=== PATIENT | female | born 1965 | race Caucasian/White ===

== ENCOUNTER → 2016-12-11 | Outpatient (CLI) | payer MEDICARE, BC ==
[~2016-12-11] MED LIST: ATIVAN 0.50.5 MG/TAB PO; CYMBALTA 60MG60 MG PO; NO HOME MEDICATIONS; NORCO 325 MG-51 TAB PO; PERCOCET 325 MG1 TA2 PO; SEROQUEL 200MG200 MG PO; ZOLOFT 100MG100 MG PO
== END ==
LOC: BHSO 09:39
DX: F33.42 Major depressive disorder, recurrent, in full remission (principal)

== ENCOUNTER 2017-01-16 14:09 | Emergency (ER) | payer MEDICARE, BC ==
[~2017-01-16] VITALS: Ht 154.9 cm; Wt 63.6 kg
[~2017-01-16 14:09] MED LIST changes: -ZOLOFT 100MG100 MG PO
[2017-01-16 14:10] VITALS: TEMP 97.3
[2017-01-16] MEDS ORDERED: ZOLOFT 100MG100 MG PO (14:14)
[2017-01-16 15:09] LABS: BASO # 0.1 (0.0-0.2); BASO % 0.6 % (0.0-2.0); EOS # 0.1 (0.0-0.7); GRAN # 6.3 (1.4-6.5); GRAN % 76.3 % (42.2-75.2); HEMATOCRIT 45.1 % (37.0-47.0); HEMOGLOBIN 15.1 g/dl (12.5-16.0); LYMPH # 1.3 (1.2-3.4); LYMPH % 15.6 % (20.0-51.0); MEAN CELL VOLUME 90 fl (80.0-100.0); MEAN CORPUSCULAR HEMOGLOBIN 30 pg (27.0-31.0); MEAN CORPUSCULAR HGB CONC 34 g/dl (33.0-37.0); MONO # 0.5 (0.1-0.6); MONO % 6.3 % (1.7-9.3); PLATELET COUNT 312 K/mm3 (130-400); RED BLOOD COUNT 5.04 M/mm3 (4.10-5.30); REDCELL DISTRIBUTION WIDTH-CV 12.7 % (11.5-14.5); WHITE BLOOD COUNT 8.3 K/mm3 (4.8-10.8)
[2017-01-16 15:23] LABS: ADJUSTED CALCIUM 9.9 mg/dL (8.4-10.2); ALANINE AMINOTRANSFERASE 87 U/L (9-52); ALBUMIN 4.5 gm/dL (3.5-5.0); ALKALINE PHOSPHATASE 89 U/L (50-136); ANION GAP 11 mmol/L (7-16); BILIRUBIN,TOTAL 0.6 mg/dL (0.0-1.0); BLOOD UREA NITROGEN 14 mg/dL (7-17); CALCIUM 10.3 mg/dL (8.4-10.2); CARBON DIOXIDE 28 mmol/L (22-30); CHLORIDE 101 mmol/L (98-107); CREATININE, serum 0.84 mg/dL (0.52-1.25); GLUCOSE 137 mg/dL (74-106); POTASSIUM 4.2 mmol/L (3.4-5.0); SODIUM 140 mmol/L (137-145); TOTAL PROTEIN 8.3 gm/dL (6.4-8.2)
[2017-01-16 17:00] LABS: ACETAMINOPHEN < 10 ug/mL (10-30); CREATINE KINASE 133 U/L (30-135); SALICYLATE < 1.0 mg/dL
[2017-01-16 17:01] LABS: AMPHETAMINE URINE NEGATIVE; BARBITURATES URINE NEGATIVE; BENZODIAZEPINES URINE NEGATIVE; BUPRENORPHINE URINE NEGATIVE; METHADONE URINE NEGATIVE; OPIATES URINE POSITIVE; OXYCODONE URINE NEGATIVE; PHENCYCLIDINE URINE NEGATIVE; PROPOXYPHENE URINE NEGATIVE; THC CANNABINOIDS URINE NEGATIVE
[2017-01-16 19:35] VITALS: BP 139/86; PULSE 93
== END 2017-01-16 19:35 | disposition home or self-care (01) ==
LOC: COL.ER 14:09
PROVIDERS: Emergency Medicine
DX: F45.9 Somatoform disorder, unspecified (principal); F32.9 Major depressive disorder, single episode, unspecified; M79.1 Myalgia
CPT/HCPCS: J1200; J1630; J2270; J7030

== ENCOUNTER → 2017-02-06 | Outpatient (CLI) | payer MEDICARE, BC ==
[~2017-02-06] MED LIST changes: +ZOLOFT 100MG100 MG PO
== END ==
LOC: BHSO 09:01
DX: F33.0 Major depressive disorder, recurrent, mild (principal)

== ENCOUNTER → 2017-03-05 | Outpatient (CLI) | payer MEDICARE, BC | LOC: BHSO 13:32 | DX: F33.42 Major depressive disorder, recurrent, in full remission (principal) ==

== ENCOUNTER → 2017-04-30 | Outpatient (CLI) | payer MEDICARE, BC | LOC: BHSO 13:37 | DX: F33.42 Major depressive disorder, recurrent, in full remission (principal) ==

== ENCOUNTER → 2017-06-13 | Outpatient (CLI) | payer BC | LOC: BHSO 14:17 | DX: F33.41 Major depressive disorder, recurrent, in partial remission (principal) ==

== ENCOUNTER → 2017-09-26 | Outpatient (CLI) | payer BC | LOC: BHSO 14:15 | DX: F33.42 Major depressive disorder, recurrent, in full remission (principal) ==

== ENCOUNTER → 2017-12-02 | Outpatient (CLI) | payer MEDICARE, BC | LOC: MC.RAD 10:16 | DX: Z12.31 Encounter for screening mammogram for malignant neoplasm of breast (principal) ==

== ENCOUNTER → 2017-12-26 | Outpatient (CLI) | payer MEDICARE, BC | LOC: BHSO 13:58 | DX: F33.41 Major depressive disorder, recurrent, in partial remission (principal) | CPT/HCPCS: G0463 ==

== ENCOUNTER → 2018-03-25 | Outpatient (CLI) | payer MEDICARE, BC | LOC: BHSO 13:01 | DX: F33.42 Major depressive disorder, recurrent, in full remission (principal) | CPT/HCPCS: G0463 ==

== ENCOUNTER → 2018-09-24 | Outpatient (CLI) | payer MEDICARE, BC | LOC: BHSO 13:59 | DX: F33.41 Major depressive disorder, recurrent, in partial remission (principal) | CPT/HCPCS: G0463 ==

== ENCOUNTER → 2018-11-20 | Outpatient (CLI) | payer MEDICARE, BC | LOC: BHSO 15:02 | DX: F33.41 Major depressive disorder, recurrent, in partial remission (principal) | CPT/HCPCS: G0463 ==

== ENCOUNTER → 2019-02-16 | Outpatient (CLI) | payer MEDICARE, BC | LOC: BHSO 11:22 | DX: F20.9 Schizophrenia, unspecified (principal) ==

== ENCOUNTER → 2019-03-01 | Outpatient (CLI) | payer MEDICARE, BC | LOC: BHSO 11:20 | DX: F33.41 Major depressive disorder, recurrent, in partial remission (principal) | CPT/HCPCS: G0463 ==

== ENCOUNTER → 2019-04-02 | Outpatient (CLI) | payer MEDICARE, BC | LOC: BHSO 11:24 | DX: F22 Delusional disorders (principal) | CPT/HCPCS: G0463 ==

== ENCOUNTER → 2019-05-07 | Outpatient (CLI) | payer MEDICARE, BC | LOC: BHSO 11:19 | DX: F22 Delusional disorders (principal) | CPT/HCPCS: G0463 ==

== ENCOUNTER → 2019-08-03 | Outpatient (CLI) | payer MEDICARE, BC | LOC: BHSO 11:18 | DX: F33.41 Major depressive disorder, recurrent, in partial remission (principal) | CPT/HCPCS: G0463 ==

== ENCOUNTER → 2019-10-27 | Outpatient (CLI) | payer MEDICARE, BC | LOC: BHSO 16:00 | DX: F33.42 Major depressive disorder, recurrent, in full remission (principal) | CPT/HCPCS: G0463 ==

== ENCOUNTER → 2020-01-13 | Outpatient (CLI) | payer MEDICARE, BC | LOC: BHSO 11:14 | DX: F22 Delusional disorders (principal) | CPT/HCPCS: G0463 ==

== ENCOUNTER → 2020-01-27 | Outpatient (CLI) | payer MEDICARE, BC | LOC: BHSO 09:22 | DX: F22 Delusional disorders (principal) | CPT/HCPCS: G0463 ==

== ENCOUNTER → 2020-04-11 | Outpatient (CLI) | payer MEDICARE, BC | LOC: BHSO 10:00 | DX: F22 Delusional disorders (principal) ==

== ENCOUNTER → 2020-04-26 | Outpatient (CLI) | payer MEDICARE, BC | LOC: BHSO 14:06 | DX: F22 Delusional disorders (principal) | CPT/HCPCS: G0463 ==

== ENCOUNTER → 2020-06-28 | Outpatient (CLI) | payer MEDICARE, BC | LOC: BHSO 13:04 | DX: F22 Delusional disorders (principal) | CPT/HCPCS: G0463 ==

== ENCOUNTER → 2021-01-05 | Outpatient (CLI) | payer MEDICARE, BC | LOC: MC.RAD 10:16 | DX: Z12.31 Encounter for screening mammogram for malignant neoplasm of breast (principal) ==

== ENCOUNTER 2021-06-08 23:17 | Emergency (ER) | payer MEDICARE, BC ==
[~2021-06-08] VITALS: Ht 152.4 cm; Wt 72.7 kg
[2021-06-08 23:32] VITALS: TEMP 97.2
[2021-06-09] LABS: BASO # 0.1 (0.0-0.2); BASO % 1.2 % (0.0-2.0); EOS # 0.3 (0.0-0.7); EOS % 3.4 % (0-4.0); GRAN # 3.1 (1.4-6.5); GRAN % 42.1 % (42.2-75.2); HEMATOCRIT 44.8 % (37.0-47.0); HEMOGLOBIN 15.2 g/dl (12.5-16.0); LYMPH # 3.1 (1.2-3.4); LYMPH % 42.1 % (20.0-51.0); MEAN CELL VOLUME 85 fl (80.0-100.0); MEAN CORPUSCULAR HEMOGLOBIN 29 pg (27.0-31.0); MEAN CORPUSCULAR HGB CONC 34 g/dl (33.0-37.0); MEAN PLATELET VOLUME 9.8 fl (7.4-10.4); MONO # 0.8 (0.1-0.6); MONO % 10.9 % (1.7-9.3); PLATELET COUNT 318 K/mm3 (130-400); RED BLOOD COUNT 5.28 M/mm3 (4.10-5.30); REDCELL DISTRIBUTION WIDTH-CV 13.3 % (11.5-14.5)
[2021-06-09 00:10] LABS: ALBUMIN 4.7 gm/dL (3.5-5.0); BILIRUBIN,TOTAL 0.6 mg/dL (0.0-1.0); CALCIUM 10.9 mg/dL (8.4-10.2); CREATININE, serum 0.8 (0.52-1.25); TOTAL PROTEIN 8.2 gm/dL (6.4-8.2)
[2021-06-09 00:18] LABS: COLLECTION METHOD CLEAN CATCH
[2021-06-09 00:23] LABS: PH 8 (5-8); SQUAMOUS EPITHELIAL 0-2 /hpf; URINE APPEARANCE Clear; URINE BACTERIA Rare /hpf; URINE BILIRUBIN Negative (NEGATIVE); URINE BLOOD Negative (NEGATIVE); URINE COLOR Straw; URINE GLUCOSE Negative (NEGATIVE); URINE KETONE Negative (NEGATIVE); URINE LEUKOCYTE ESTERASE Negative (NEGATIVE); URINE NITRATE Negative (NEGATIVE); URINE PROTEIN(semi-quant) Negative (NEGATIVE); URINE RBC 0-2 /hpf; URINE UROBILINOGEN Negative (NEGATIVE)
[2021-06-09 01:05] VITALS: BP 154/70; PULSE 68
== END 2021-06-09 01:05 | disposition home or self-care (01) ==
LOC: COL.ER 23:17
PROVIDERS: Emergency Medicine
DX: M79.18 Myalgia, other site (principal); E87.6 Hypokalemia; F32.9 Major depressive disorder, single episode, unspecified; Z79.899 Other long term (current) drug therapy

== ENCOUNTER → 2022-04-25 | Outpatient (CLI) | payer MEDICARE, BC | LOC: COL.RAD 09:53 | DX: M16.12 Unilateral primary osteoarthritis, left hip (principal) ==

== ENCOUNTER 2022-12-25 17:14 | Inpatient (IN) | payer MEDICARE, BC ==
[~2022-12-25] VITALS: Ht 152.4 cm; Wt 74.3 kg
--- NOTE | 2022-12-25 11:30 | NUR ---
melting supervisor is unable to obtain an IV. MINDY Holly contacted, placed an Anesthesia consult to have senior environmental technician LEAD SOFTWARE ARCHITECT come to place US guided IV.
[2022-12-25] MEDS ORDERED: GEODON80 MG PO (17:47)
[2022-12-25] MEDS ORDERED: SYNTHROID0.075 MG/T PO (17:48)
[2022-12-25] MEDS ORDERED: BUMEX 1MG TA1 MG/TA1 PO (17:54)
[2022-12-25] MEDS ORDERED: PRAVACHOL 20MG20 MG PO (18:16)
[2022-12-25] MEDS ORDERED: LYRICA 50MG CAP50 MG PO (18:16)
[2022-12-25] MEDS ORDERED: VISTARIL50 MG PO (18:17)
[2022-12-25 18:40] LABS: BASO % 0.5 % (0.0-2.0); EOS % 0.5 % (0.0-4.0); GRAN # 7.3 K/mm3 (1.4-6.5); GRAN % 83.5 % (42.2-75.2); HEMATOCRIT 39.9 % (37.0-47.0); HEMOGLOBIN 13.9 g/dl (12.5-16.0); LYMPH % 11.9 % (20.0-51.0); MEAN CELL VOLUME 81 fl (80.0-100.0); MEAN CORPUSCULAR HEMOGLOBIN 28 pg (27-31); MEAN CORPUSCULAR HGB CONC 35 g/dl (33.0-37.0); MEAN PLATELET VOLUME 11.1 fl (7.4-10.4); MONO # 0.3 K/mm3 (0.1-0.6); PLATELET COUNT 184 K/mm3 (130-400); REDCELL DISTRIBUTION WIDTH-CV 13.2 % (11.5-14.5)
[2022-12-25 18:47] LABS: ALBUMIN 3.4 gm/dL (3.5-5.0); BILIRUBIN,TOTAL 1.1 mg/dL (0.2-1.2); CREATININE, serum 1.62 mg/dL (0.57-1.11); TOTAL PROTEIN 7.6 gm/dL (6.2-8.1)
[2022-12-25 18:50] LABS: POTASSIUM 2.7 mmol/L (3.5-4.5)
--- NOTE | 2022-12-25 19:30 | NUR ---
At this time, the patient is without an IV. The patient is a difficult stick, and this RN attempted to look, but did not feel comfortable attempting the IV placement. ultrasound supervisor contacted for IV placement, she will attempt when she is able to make it to the medical floor. Assessment made, the patient has severe reddened LLE cellulitis, at this time there is no drainage. The patient is able to walk, but does state that her feet are too swollen and are really uncomfortable.
[2022-12-25 20:43] VITALS: BP 103/58; PULSE 93; TEMP 99.8
[2022-12-25 23:10] VITALS: BP 111/67; PULSE 110; TEMP 101.9
[2022-12-25 23:18] LABS: COLLECTION METHOD CLEAN CATCH
[2022-12-25 23:23] LABS: PH 5.5 (5.0-8.5); URINE APPEARANCE Clear (CLEAR/HAZY); URINE BLOOD 2+ (NEGATIVE); URINE COLOR Yellow (YELLOW); URINE GLUCOSE Negative (NEGATIVE); URINE KETONE Negative (NEGATIVE); URINE NITRATE Negative (NEGATIVE); URINE PROTEIN(semi-quant) 1+ (NEGATIVE); URINE UROBILINOGEN 0.2 E.U/dL (0.2-1.0)
[2022-12-25 23:26] LABS: MUCOUS Present (NOT PRESENT); URINE BACTERIA None Seen /hpf (NONE SEEN); URINE RBC 0-2 /hpf (0-2)
[2022-12-26] VITALS (9 sets, daily range): BP systolic 85–124; BP diastolic 44–64; PULSE 96–110; TEMP 97.5–100.8
--- NOTE | 2022-12-26 | NUR ---
US guided IV placed at this time. The patient now has a 20g in the R FA. Flushes well, with good blood return. Pt still at risk of inflitration d/t the depth per Vahe Khalil CRNA. Continue to monitor site. PICC is scheduled for today.
--- NOTE | 2022-12-26 03:30 | NUR ---
During vitals, this patient had low BP, high heart rate, low grade temp as well as some chills. At this time, MINDY Holly was notified, and the patient was placed on sepsis protocol and sepsis fluids were started.
--- NOTE | 2022-12-26 05:38 | NUR ---
Vancomycin Initial Dosing Pharmacy Note Ordering provider: Robert Pelaez MD Indication/duration: Cellulitis x 7 days Relevant comorbidities: N/A LABS: WBC = 8.7, SCr = 1.62, Tmax = 101.9 F Recommendation: Will draw trough and follow levels. Loading dose: 1.5 grams Maintenance dose: 750 mg every 24 hours Trough goal: 10-15 ug/mL
[2022-12-26 06:51] LABS: BASO % 0.5 % (0.0-2.0); EOS % 0.6 % (0.0-4.0); GRAN # 5.2 K/mm3 (1.4-6.5); GRAN % 83.9 % (42.2-75.2); LYMPH # 0.7 K/mm3 (1.2-3.4); LYMPH % 10.7 % (20.0-51.0); MEAN CELL VOLUME 82 fl (80.0-100.0); MEAN CORPUSCULAR HGB CONC 35 g/dl (33.0-37.0); MEAN PLATELET VOLUME 10.7 fl (7.4-10.4); MONO # 0.3 K/mm3 (0.1-0.6); MONO % 4.1 % (1.7-9.3); PLATELET COUNT 148 K/mm3 (130-400); RED BLOOD COUNT 3.82 M/mm3 (4.10-5.30); REDCELL DISTRIBUTION WIDTH-CV 13.2 % (11.5-14.5)
[2022-12-26 06:57] LABS: HEMATOCRIT 31.3 % (37.0-47.0); HEMOGLOBIN 10.8 g/dl (12.5-16.0); MEAN CORPUSCULAR HEMOGLOBIN 28 pg (27-31)
[2022-12-26 07:01] LABS: INR 1.2 (0.8-3.0); PROTHROMBIN TIME 13.5 SECONDS (9.7-12.8)
[2022-12-26 07:07] LABS: CALCIUM 8.3 mg/dL (8.4-10.2); CREATININE, serum 0.9 mg/dL (0.57-1.11); MAGNESIUM 1.7 mg/dL (1.6-2.6)
[2022-12-26 07:11] LABS: POTASSIUM 2.7 mmol/L (3.5-4.5)
--- NOTE | 2022-12-26 09:12 | NUR ---
SHIFT ASSESSMENT COMPLETED AND MORNING MEDICATIONS ADMINISTERED PER ORDER. PATIENT IS ALERT AND ORIENTED X4. C/O PAIN TO LEFT LEG 6/10, TREATED WITH PRN PAIN MEDICATION. ON IVF AND VANCOMYCIN, TOLERATING WELL. PENDING PICC PLACEMENT. DENIES NEEDS AT THIS TIME. CALL LIGHT WITHIN REACH.
--- NOTE | 2022-12-26 13:49 | NUR ---
Web Content Manager met with patient to discuss discharge planning. Patient lives alone in [place] and sees Dr. Orr for primary care. Patient obtains medications from [facility] with no difficulties and does not use any DME at home. Patient is independent with ADLS and plans to return home at time of discharge. Patient advised her sister, Asha (ph#[phone]) is her DPOA-HC. Patient also listed her friend, Julieth (ph#[phone]) as a contact. Discharge Plan: Home
--- NOTE | 2022-12-26 15:31 | NUR ---
Initial visit: Digital Media Planner stopped by room on rounds. Pt was resting and content. Pt has no needs right now. Digital Media Planner will follow up as needed
--- NOTE | 2022-12-26 19:31 | NUR ---
PATIENT PREVIOUS REQUESTING TO BE MADE A DNR, DR. CONNELL UPDATED, AND DNR ORDER ENTERED BY MD. PATIENT THEN TOLD THIS NURSE SEVERAL HOURS LATER THAT SHE MAY WANT TO BE INTUBATED, BUT THAT SHE WANTS TO DISCUSS THIS WITH HER DOCTOR. DR. NELSON UPDATED WHO WILL COME SPEAK WITH PATIENT AND UPDATE CODE STATUS ACCORDINGLY. PREVIOUS BAG OF IV FLUIDS STILL INFUSING, HS RN NOTIFIED WHO WILL HANG NEXT BAG WHEN ABLE.
--- NOTE | 2022-12-26 20:30 | NUR ---
Initial shift assessment done- pt on 2L/nc with sats 92%, alert/oriented x3, right lower leg is bright red- has been marked with marker. has bilateral lower extremity edema, hand edema, generalized edema, tele on- ST, IV fluids of NS at 150cc/hr to BRADEN PICC line- temp 100.8-- tylenol given, B/P stable at this time.
--- NOTE | 2022-12-26 22:50 | NUR ---
Pt states feeling SOB, o2 sats 88%- put on 4L/per mask, sats up to 92-93%, lung sounds very decreased in the bases, B/P remains stable-- Elayne called with the SOB and edema ,, ordered to stop IV fluids at give 20mg of Lasix00 pt aware.
[2022-12-27] VITALS (8 sets, daily range): BP systolic 99–125; BP diastolic 53–60; PULSE 90–105; TEMP 98.1–102.2
--- NOTE | 2022-12-27 05:30 | NUR ---
Is feeling a little better this morning- VSS, o2 sats now 96% on the 4L/mask, temp down to 99.0,, Has been up to the BSC numerous times - has had 2750cc urine out since the Lasix given before midnight. Left leg remains bright red-continues with edema lower ext, hands, trunk-- tele on.
[2022-12-27 06:44] LABS: BASO % 0.4 % (0.0-2.0); EOS # 0.1 K/mm3 (0.0-0.7); EOS % 0.9 % (0.0-4.0); GRAN # 6.9 K/mm3 (1.4-6.5); GRAN % 81.2 % (42.2-75.2); HEMOGLOBIN 10.6 g/dl (12.5-16.0); LYMPH # 0.9 K/mm3 (1.2-3.4); MEAN CELL VOLUME 85 fl (80.0-100.0); MEAN CORPUSCULAR HEMOGLOBIN 28 pg (27-31); MEAN CORPUSCULAR HGB CONC 33 g/dl (33.0-37.0); MEAN PLATELET VOLUME 11.6 fl (7.4-10.4); MONO # 0.5 K/mm3 (0.1-0.6); MONO % 6.1 % (1.7-9.3); PLATELET COUNT 165 K/mm3 (130-400); RED BLOOD COUNT 3.79 M/mm3 (4.10-5.30); REDCELL DISTRIBUTION WIDTH-CV 13.8 % (11.5-14.5)
[2022-12-27 06:45] LABS: C-REACTIVE PROTEIN 20.73 mg/dL (0.00-0.50); CALCIUM 8.4 mg/dL (8.4-10.2); CREATININE, serum 0.75 mg/dL (0.57-1.11); MAGNESIUM 1.8 mg/dL (1.6-2.6); POTASSIUM 3.5 mmol/L (3.5-4.5)
[2022-12-27 06:51] LABS: HEMATOCRIT 32.3 % (37.0-47.0)
--- NOTE | 2022-12-27 10:21 | NUR ---
Overhead Garage Door Hanger spoke with RN and patient has been mostly independent in the room. At times pain has been a challenge for patient. Discharge Plan: Home
--- NOTE | 2022-12-27 10:33 | NUR ---
SHIFT ASSESSMENT COMPLETED AND MORNING MEDICATIONS ADMINISTERED PER ORDER. PATIENT IS ALERT AND ORIENTED X4. C/O PAIN 4/10 GENERALIZED. LUNGS DIMINISHED IN THE BASES BILATERALLY. CELLULITIS TO LEFT LOWER LEG. AMBULATING INDEPENDENTLY IN THE ROOM. DENIES NEEDS AT THIS TIME. REQUEST MEDICATIONS BE RE-TIMED, PHARMACY UPDATED. CALL LIGHT WITHIN REACH.
--- NOTE | 2022-12-27 15:27 | NUR ---
SW placed copy of Advance Directives on patient's chart.
--- NOTE | 2022-12-27 17:28 | NUR ---
PATIENT UP TO THE COMMODE AT THIS TIME WITH ONE ASSIST. C/O PAIN 3/10 TO HER LEFT LEG BUT DENIES NEED FOR PAIN MEDICATION OR INTERVENTIONS AT THIS TIME. BP HAS BEEN STABLE THROUGHOUT THE SHIFT. DENIES ANY NEEDS, CALL LIGHT WITHIN REACH.
--- NOTE | 2022-12-27 23:44 | NUR ---
NURSING SHIFT ASSESSMENT COMPLETED. THE PATIENT DENIED PAIN AT THIS TIME. THE PLAN OF CARE WAS DISCUSSED. THE PATIENT WAS ALERT, ORIENTED AND APPROPRIATE. WILL MONITOR. CALL LIGHT WITHIN REACH.
[2022-12-28] VITALS (8 sets, daily range): BP systolic 89–123; BP diastolic 49–62; PULSE 78–94; TEMP 98.1–99.7
[2022-12-28 06:01] LABS: BASO # 0.1 K/mm3 (0.0-0.2); BASO % 0.5 % (0.0-2.0); EOS # 0.2 K/mm3 (0.0-0.7); EOS % 1.9 % (0.0-4.0); GRAN # 6.1 K/mm3 (1.4-6.5); GRAN % 65.7 % (42.2-75.2); HEMOGLOBIN 10.3 g/dl (12.5-16.0); LYMPH % 21.1 % (20.0-51.0); MEAN CELL VOLUME 85 fl (80.0-100.0); MEAN CORPUSCULAR HEMOGLOBIN 28 pg (27-31); MEAN CORPUSCULAR HGB CONC 33 g/dl (33.0-37.0); MEAN PLATELET VOLUME 10.8 fl (7.4-10.4); MONO # 0.9 K/mm3 (0.1-0.6); MONO % 9.8 % (1.7-9.3); PLATELET COUNT 172 K/mm3 (130-400); RED BLOOD COUNT 3.71 M/mm3 (4.10-5.30); REDCELL DISTRIBUTION WIDTH-CV 13.9 % (11.5-14.5)
[2022-12-28 06:05] LABS: HEMATOCRIT 31.5 % (37.0-47.0)
[2022-12-28 06:17] LABS: CREATININE, serum 0.74 mg/dL (0.57-1.11); POTASSIUM 3.7 mmol/L (3.5-4.5)
--- NOTE | 2022-12-28 08:39 | NUR ---
Pt assessment complete. Pt is laying in bed upon entry, she is A/O x4. Her breathing is even and unlabored on 2L O2 via NC. Pt denies SOB. Pain to LLE 04/02, does not need anything for pain at this time. Denies any N/V. Pt assisted to the BSC. IV antibiotics infusing. No needs at this time. Call light withn reach.
--- NOTE | 2022-12-29 01:30 | NUR ---
NURSING SHIFT ASSESSMENT COMPLETED. THE PATIENT REPORTED 4/10 PAIN LEFT LOWER EXTREMITY. SCHEDULED PAIN MEDICATION PROVIDED. THE PATIENT WAS ALERT, ORIENTED AND APPROPRIATE. THE PATIENT WAS ASSISTED OUT OF BED AND TO THE CHAIR WITH 1:1 ASSIST. EVENING MEDICATIONS AND PLAN OF CARE DISCUSSED. WILL MONITOR.
[2022-12-29 03:55] VITALS: BP 92/55; PULSE 76; TEMP 98.2
[2022-12-29 07:43] VITALS: BP 115/68; PULSE 81; TEMP 98.7
--- NOTE | 2022-12-29 08:33 | NUR ---
Pt assessment complete. Pt is sitting up in bed upon entry, she is A/O x4. Her breathing is even and unlabored on 1L o2 via NC. Pt denies SOB. Pain tolerable at this time. Denies any N/V. BLE elevated on pillow. No needs at this time. Call light withinr each.
[2022-12-29 12:30] VITALS: BP 107/59; PULSE 82; TEMP 98.4
[2022-12-29 16:39] VITALS: BP 112/63; PULSE 89; TEMP 98.5
--- NOTE | 2022-12-29 18:31 | NUR ---
Pt had uneventful day. Pain well controlled, elevated leg on a pillow as one is all that she is able to withstand. Pt assisted with a shower tonight. Has no needs at this time. Call light within reach.
[2022-12-29 19:03] VITALS: BP 117/68; PULSE 88; TEMP 98.6
[2022-12-29 23:10] VITALS: BP 107/60; PULSE 97; TEMP 98.9
[2022-12-30] VITALS (7 sets, daily range): BP systolic 105–125; BP diastolic 59–78; PULSE 55–95; TEMP 97.3–98.7
--- NOTE | 2022-12-30 03:12 | NUR ---
NURSING SHIFT ASSESSMENT COMPLETED. THE PATIENT DENIED NEEDS AT THIS TIME. THE PLAN OF CARE WAS DISCUSSED AND ALL QUESTIONS AND CONERNS WERE ADDRESSED. WILL MONITOR.
[2022-12-30 06:02] LABS: HEMOGLOBIN 11.9 g/dl (12.5-16.0); MEAN CELL VOLUME 85 fl (80.0-100.0); MEAN CORPUSCULAR HEMOGLOBIN 28 pg (27-31); MEAN CORPUSCULAR HGB CONC 32 g/dl (33.0-37.0); MEAN PLATELET VOLUME 10.7 fl (7.4-10.4); REDCELL DISTRIBUTION WIDTH-CV 13.6 % (11.5-14.5)
[2022-12-30 06:03] LABS: HEMATOCRIT 36.7 % (37.0-47.0)
[2022-12-30 06:04] LABS: PLATELET COUNT 277 K/mm3 (130-400)
[2022-12-30 06:17] LABS: C-REACTIVE PROTEIN 9.04 mg/dL (0.00-0.50); CREATININE, serum 0.89 mg/dL (0.57-1.11); MAGNESIUM 2.2 mg/dL (1.6-2.6); POTASSIUM 4.4 mmol/L (3.5-4.5)
[2022-12-30 06:33] LABS: BAND 9 % (0-10); EOSINOPHIL 3 % (0-4); HYPOCHROMIA 1+; LYMPHOCYTE 26 % (20.0-51.0); NEUTROPHILS 55 % (42.0-75.2); PLATELET ESTIMATE NORMAL (NORMAL)
--- NOTE | 2022-12-30 10:28 | NUR ---
Vancomycin Follow-up Pharmacy Note Current regimen: Vancomycin 750 mg IV q24h Vancomycin trough: 4.9 Adjustments: Will increase Vancomycin to 750 mg IV q12h. Pharmacy will continue to closely monitor.
--- NOTE | 2022-12-30 10:37 | NUR ---
SHIFT ASSESSSMENT COMPLETED AND MORNING MEDICATIONS ADMINISTERED PER ORDER. PATIENT IS ALERT AND ORIENTED X4. DENIES PAIN. LUNGS CTA. CELLULITIS TO LLE. PICC IN PLACE TO RIGHT UPPER ARM, PATENT AND WITH GOOD BLOOD RETURN. VANC TROUGH THIS MORNING WAS LOW, PER ROSANA, PHARMACY, GIVE 0900 DOSE AND SHE WILL ADJUST NEXT DOSE. VANC HANGING NOW, PATIENT TOLERATING WELL. DENIES ANY FURTHER NEEDS. CALL LIGHT WITHIN REACH.
--- NOTE | 2022-12-30 18:12 | NUR ---
PATIENT UP IN BED AT THIS TIME. DENIES ANY NEEDS. CONTINUES ON VANC, TOLERATING WELL. CALL LIGHT WITHIN REACH.
[2022-12-31 03:45] VITALS: BP 94/50; PULSE 88; TEMP 98.1
--- NOTE | 2022-12-31 08:00 | NUR ---
Patient is resting in bed, alert and oriented x 4, assisted to the restroom. Complains of tolerable pain with walking. Notable reduction of redness on left lower leg. Assessment completed, meds provided. No other needs at this time. Call light within reach.
[2022-12-31 08:11] VITALS: BP 118/68; PULSE 87; TEMP 98.1
[2022-12-31 08:52] LABS: HEMATOCRIT 37.6 % (37.0-47.0); HEMOGLOBIN 12.2 g/dl (12.5-16.0); MEAN CELL VOLUME 86 fl (80.0-100.0); MEAN CORPUSCULAR HEMOGLOBIN 28 pg (27-31); MEAN CORPUSCULAR HGB CONC 32 g/dl (33.0-37.0); MEAN PLATELET VOLUME 10.5 fl (7.4-10.4); PLATELET COUNT 301 K/mm3 (130-400); REDCELL DISTRIBUTION WIDTH-CV 13.7 % (11.5-14.5)
[2022-12-31 08:59] LABS: CALCIUM 9.3 mg/dL (8.4-10.2); CREATININE, serum 0.83 mg/dL (0.57-1.11); POTASSIUM 4.6 mmol/L (3.5-4.5)
[2022-12-31 10:31] LABS: BAND 2 % (0-10); EOSINOPHIL 9 % (0-4); LYMPHOCYTE 24 % (20.0-51.0); NEUTROPHILS 57 % (42.0-75.2); NUCLEATED RED BLOOD CELL 1 (0-6)
[2022-12-31 10:32] LABS: HYPOCHROMIA 1+; PLATELET ESTIMATE NORMAL (NORMAL)
--- NOTE | 2022-12-31 11:04 | NUR ---
MITCHELL met with the patient to review discharge plan. The patient confirms that she plans to return home upon discharge. She shares that she does have some concerns about being able to get in and out of bed. She provides that she does not a FWW. PT is recommending home. SW discussed the option of home health and getting a FWW walker ordered through her insurance. The patient is interested in both of these. MITCHELL provided her with Medicare.[facility]'s list of home health agencies that serve [place]. The patient chose [facility]. The patient is also agreeable to getting the FWW through [facility]. MITCHELL staffed with PT. PT states that they worked with the patient on bed mobility and the patient is able to get in and out of bed herself and they still recommend home. MITCHELL contacted and faxed the FWW order to Wilver at [facility]. Wilver states that they can deliver the FWW to the patient's room tomorrow. MITCHELL contacted and faxed a referral to Enrique at [facility]. Enrique reports they are able to accept the patient. *Discharge plan: home with home health*
[2022-12-31 11:39] VITALS: BP 119/68; PULSE 83; TEMP 97.2; TEMP 970
[2022-12-31 16:00] VITALS: BP 119/74; PULSE 92; TEMP 97.4
--- NOTE | 2022-12-31 18:54 | NUR ---
Patient has had a calm day, did not asked for pain medicaiotn, cooperative with terapy and taking medications. Report given to night RN.
[2022-12-31 20:04] VITALS: BP 117/69; PULSE 90; TEMP 98
[2023-01-01] VITALS (7 sets, daily range): BP systolic 96–129; BP diastolic 48–68; PULSE 79–89; TEMP 97.4–98.2
[2023-01-01 06:45] LABS: HEMATOCRIT 38.3 % (37.0-47.0); HEMOGLOBIN 12.5 g/dl (12.5-16.0); MEAN CELL VOLUME 86 fl (80.0-100.0); MEAN CORPUSCULAR HEMOGLOBIN 28 pg (27-31); MEAN CORPUSCULAR HGB CONC 33 g/dl (33.0-37.0); MEAN PLATELET VOLUME 10.3 fl (7.4-10.4); PLATELET COUNT 326 K/mm3 (130-400); RED BLOOD COUNT 4.44 M/mm3 (4.10-5.30)
[2023-01-01 07:06] LABS: C-REACTIVE PROTEIN 5.22 mg/dL (0.00-0.50); CALCIUM 9.8 mg/dL (8.4-10.2); CREATININE, serum 0.8 mg/dL (0.57-1.11); POTASSIUM 4.4 mmol/L (3.5-4.5)
[2023-01-01 07:38] LABS: BAND 5 % (0-10); EOSINOPHIL 4 % (0-4); LYMPHOCYTE 34 % (20.0-51.0); METAMYELOCYTE 3 % (0-0); MYELOCYTE 4 % (0-0); NEUTROPHILS 46 % (42.0-75.2); PLATELET ESTIMATE NORMAL (NORMAL)
[2023-01-01 07:39] LABS: HYPOCHROMIA 1+
--- NOTE | 2023-01-01 11:08 | NUR ---
SHIFT ASSESSMENT COMPLETED AND MORNING MEDICATIONS ADMINISTERED PER ORDER. PATIENT IS ALERT AND ORIENTED X4. DENIES PAIN AT THIS TIME. CELLULITIS TO LEFT LOWER LEG. LUNGS CTA. PICC TO RIGHT UPPER ARM, RED PORT PATENT WITH GOOD BLOOD RETURN, PURPLE PORT NON-PATENT. DENIES ANY NEEDS. CALL LIGHT WITHIN REACH.
--- NOTE | 2023-01-01 13:11 | NUR ---
Wilver, at [facility], reports that they will be delivering the FWW to the patient's room today.
--- NOTE | 2023-01-01 18:15 | NUR ---
PATIENT IN BED AT THIS TIME. DENIES ANY NEEDS. CALL LIGHT WITHIN REACH.
--- NOTE | 2023-01-01 21:00 | NUR ---
PT RESTING IN BED. A&OX4. PLEASANT AND COOPERATIVE. LLE RED AND SWOLLEN. SKIN VERY SHINY. MINIMAL WEEPING. DENIES NUMBNESS OR TINGLING. PAIN CONTROLLED AT THIS TIME. SCHEDULED LYRICA. PT REPORTS X1 DIARRHEA TODAY.
[2023-01-02] VITALS (7 sets, daily range): BP systolic 95–116; BP diastolic 52–74; PULSE 81–108; TEMP 97.7–98.5
--- NOTE | 2023-01-02 05:02 | NUR ---
PICC LINE BOTH PORT UNABLE TO FLUSH OR PULL BLOOD. UNABLE TO CHANGE CAPS.
[2023-01-02 06:34] LABS: HEMATOCRIT 40.1 % (37.0-47.0); HEMOGLOBIN 12.8 g/dl (12.5-16.0); MEAN CELL VOLUME 86 fl (80.0-100.0); MEAN CORPUSCULAR HEMOGLOBIN 27 pg (27-31); MEAN CORPUSCULAR HGB CONC 32 g/dl (33.0-37.0); RED BLOOD COUNT 4.67 M/mm3 (4.10-5.30); REDCELL DISTRIBUTION WIDTH-CV 13.9 % (11.5-14.5)
[2023-01-02 06:36] LABS: PLATELET COUNT 440 K/mm3 (130-400)
[2023-01-02 06:54] LABS: C-REACTIVE PROTEIN 4.33 mg/dL (0.00-0.50); CALCIUM 9.9 mg/dL (8.4-10.2); CREATININE, serum 0.99 mg/dL (0.57-1.11); POTASSIUM 4.6 mmol/L (3.5-4.5)
[2023-01-02 07:49] LABS: BAND 4 % (0-10); BASOPHIL 2 % (0-2); EOSINOPHIL 2 % (0-4); LYMPHOCYTE 21 % (20.0-51.0); NEUTROPHILS 70 % (42.0-75.2)
[2023-01-02 07:51] LABS: PLATELET ESTIMATE INCREASED (NORMAL)
[2023-01-02 07:52] LABS: HYPOCHROMIA 1+
--- NOTE | 2023-01-02 10:13 | NUR ---
SHIFT ASSESSMENT COMPLETED AND MORNING MEDICATIONS ADMINISTERED PER ORDER. PATIENT IS ALERT AND ORIENTED X4. DENIES PAIN. LUNGS CTA. CELLULITIS TO LLE. PICC TO RIGHT UPPER ARM NON-PATENT, ORDER FOR CATH WILLIE RECEIVED, CATH WILLIE ADMINISTERED. PATIENT DENIES ANY NEEDS AT THIS TIME. CALL LIGHT WITHIN REACH.
--- NOTE | 2023-01-02 11:28 | NUR ---
CATH WILLIE EFFECTIVE TO BOTH PORTS. 10ML BLOOD WASTED AND PORTS FLUSHED.
[2023-01-03 04:16] VITALS: BP 103/60; PULSE 87; TEMP 99.1
--- NOTE | 2023-01-03 05:15 | NUR ---
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 PT COMPLAINED OF HIP PAIN. PT REFUSED ANY PAIN MEDICATION. PT EXPRESSED NO ADDITIONAL NEEDS. FALL PRECAUTIONS IN PLACE. BED ALARM ON. CALL LIGHT WITHIN REACH.
[2023-01-03 07:15] LABS: HEMOGLOBIN 11.7 g/dl (12.5-16.0); MEAN CELL VOLUME 83 fl (80.0-100.0); MEAN CORPUSCULAR HEMOGLOBIN 28 pg (27-31); MEAN CORPUSCULAR HGB CONC 33 g/dl (33.0-37.0); MEAN PLATELET VOLUME 10.2 fl (7.4-10.4); PLATELET COUNT 436 K/mm3 (130-400); RED BLOOD COUNT 4.26 M/mm3 (4.10-5.30); REDCELL DISTRIBUTION WIDTH-CV 14.1 % (11.5-14.5)
[2023-01-03 07:19] LABS: C-REACTIVE PROTEIN 2.89 mg/dL (0.00-0.50); CALCIUM 9.4 mg/dL (8.4-10.2); CREATININE, serum 0.89 mg/dL (0.57-1.11); POTASSIUM 4.4 mmol/L (3.5-4.5)
[2023-01-03 07:22] LABS: HEMATOCRIT 35.5 % (37.0-47.0)
[2023-01-03 07:53] VITALS: BP 98/5; PULSE 68; TEMP 98.5
[2023-01-03 08:00] VITALS: BP 106/59
[2023-01-03] MEDS ORDERED: SEPTRA DS 8001 TAB PO (09:24)
[2023-01-03 09:25] LABS: BASOPHIL 1 % (0-2); EOSINOPHIL 2 % (0-4); HYPOCHROMIA 1+; LYMPHOCYTE 25 % (20.0-51.0); NEUTROPHILS 64 % (42.0-75.2); PLATELET ESTIMATE INCREASED (NORMAL)
[2023-01-03] MEDS ORDERED: TOPROL XL 25MG25 MG PO (09:27)
[2023-01-03] MEDS ORDERED: MAG-OX 400400 MG/TAB PO (09:28)
--- NOTE | 2023-01-03 09:37 | NUR ---
The clinical team is ready to discharge the patient. The patient's FWW was delivered to the patient's room. MITCHELL followed up with the patient and presented and read the IM form outloud to her. The patient verbalized understanding and agreement to discharge today. She signed the form and declined a copy. The patient is to discharge back home today, 01/03, with home health services for usp/PT/OT from [facility]. MITCHELL notified and faxed orders to Phillip at [facility]. No additional needs at this time.
--- NOTE | 2023-01-03 11:25 | NUR ---
DISCHARGE INSTRUCTIONS REVIEWED WITH PATIENT. PICC REMOVED EARLIER, NO BLEEDING NOTED AT THIS TIME.
== END 2023-01-03 11:26 | disposition home or self-care (01) | DRG 871 ==
LOC: MEDICAL 17:14
PROVIDERS: Hospitalist; Internal Medicine; Nurse Practitioner Family; Physician Assistant; ADMIT Internal Medicine
PROC: 02H633Z Insertion of Infusion Device into Right Atrium, Percutaneous Approach (ICD-10-PCS; principal; 2022-12-26)
DX: A41.9 Sepsis, unspecified organism (principal); J96.01 Acute respiratory failure with hypoxia; I47.29 Other ventricular tachycardia; L03.116 Cellulitis of left lower limb; N17.9 Acute kidney failure, unspecified; E03.9 Hypothyroidism, unspecified; Z66 Do not resuscitate; R65.20 Severe sepsis without septic shock; F32.A Depression, unspecified; E78.5 Hyperlipidemia, unspecified; M79.7 Fibromyalgia; I07.1 Rheumatic tricuspid insufficiency; F22 Delusional disorders; E87.6 Hypokalemia; I95.9 Hypotension, unspecified; I49.3 Ventricular premature depolarization; E83.42 Hypomagnesemia; Z91.51 Personal history of suicidal behavior; Z79.890 Hormone replacement therapy; Z88.8 Allergy status to other drugs, medicaments and biological substances
CPT/HCPCS: A9284; C1751; C1892; J0690; J1644; J1940; J2543; J2997; J3370; J3475; J7030; J7050